=== PATIENT | male | born 1955 | race Caucasian/White ===

== ENCOUNTER → 2016-12-30 | Outpatient (CLI) | payer OTHER ==
[~2016-12-30] MED LIST: EPLE25TA11 PO; HYDR-531 PO; LOSA25TA9 PO; METH2.5T3 OR; METO25TA62 PO
[2016-12-30 08:21] LABS: Cholesterol 196 mg/dL (<200); HDL Cholesterol 65 mg/dL (40-59); LDL Cholesterol 127 mg/dL (<100); Triglycerides 71 mg/dL (<150)
== END | disposition home or self-care (01) ==
LOC: LAB 07:29
PROVIDERS: ATTEND Internal Medicine
DX: N40.0 Benign prostatic hyperplasia without lower urinary tract symptoms (principal); E78.00 Pure hypercholesterolemia, unspecified
CPT/HCPCS: 36415; 80061; 84153; 84439; 84443; G0434

== ENCOUNTER → 2017-02-19 | Outpatient (CLI) | payer OTHER ==
[2017-02-19 10:16] LABS: Basophils # (auto) 0 uL; Basophils % (auto) 0.6 % (0.0-2.0); Eosinophils # (auto) 0.2 uL; Eosinophils % (auto) 3.3 % (0.0-7.0); Hematocrit 46.3 % (41.0-53.0); Hemoglobin 15.7 g/dL (13.5-17.5); Lymphocytes % (auto) 16.4 % (10.0-50.0); Mean Corpuscular Hemoglobin 28.9 pg (28.0-32.0); Mean Corpuscular Volume 85.1 fL (80.0-100.0); Mean Platelet Volume 8.3 fL (7.4-10.4); Monocytes # (auto) 0.5 uL; Monocytes % (auto) 8.9 % (0.0-12.0); Neutrophils # (auto) 4.2 uL; Neutrophils % (auto) 70.8 % (37.0-80.0); Platelet Count (auto) 186 10^3/uL (140-450); Red Cell Distribution Width 15.6 % (11.6-16.0); White Blood Cell 5.9 10^3/uL (4.4-10.8)
[2017-02-19 14:27] LABS: Albumin 4.2 g/dL (3.4-5.0); Bilirubin, Total 0.7 mg/dL (0.2-1.0); Calcium 9.6 mg/dL (8.5-10.1); Potassium 4.4 mmol/L (3.5-5.1)
== END | disposition home or self-care (01) ==
LOC: LAB 09:26
DX: I10 Essential (primary) hypertension (principal); M06.9 Rheumatoid arthritis, unspecified; D64.9 Anemia, unspecified; Z79.899 Other long term (current) drug therapy; M25.50 Pain in unspecified joint
CPT/HCPCS: 36415; 80053; 85025; 85652; 86141

== ENCOUNTER → 2017-04-30 | Outpatient (CLI) | payer OTHER | END | disposition home or self-care (01) | LOC: XYW 10:56 | PROVIDERS: ATTEND Internal Medicine Pulmonary Disease | DX: I08.1 Rheumatic disorders of both mitral and tricuspid valves (principal); I27.2 Other secondary pulmonary hypertension | CPT/HCPCS: 93306 ==

== ENCOUNTER → 2017-05-01 | Outpatient (CLI) | payer OTHER ==
[~2017-05-01] MED LIST changes: +ALBUTEROL SULF 2.5 MG/0.5ML(0.5%) NEB SOLN ONE
== END | disposition home or self-care (01) ==
LOC: RT 09:15
PROVIDERS: ATTEND Internal Medicine Pulmonary Disease
DX: R06.00 Dyspnea, unspecified (principal)
CPT/HCPCS: 94060; 94640